=== PATIENT | male | born 1970 ===

== ENCOUNTER 2020-10-03 18:38 | Emergency (ER) | payer SELFPAY ==
[~2020-10-03] VITALS: Ht 188 cm; Wt 120.0 kg
[2020-10-03 20:26] VITALS: BP 165/97
== END 2020-10-03 20:31 | disposition home or self-care (01) ==
LOC: ED 18:45
DX: S46.211A Strain of muscle, fascia and tendon of other parts of biceps, right arm, initial encounter (principal); X58.XXXA Exposure to other specified factors, initial encounter; Y93.89 Activity, other specified; Y92.89 Other specified places as the place of occurrence of the external cause; Y99.8 Other external cause status
CPT/HCPCS: 99283